=== PATIENT | male | born 1970 ===

== ENCOUNTER 2017-02-20 14:37 | Emergency (ER) | payer OTHER ==
[~2017-02-20] VITALS: Ht 180.3 cm; Wt 111.6 kg
[2017-02-20 15:40] LABS: BASOPHIL % 0.2 % (0-2); PLATELET COUNT 229 x10^3mcL (130-400); RED CELL DISTRIBUTION WIDTH 13.7 % (11.5-14.5)
[2017-02-20 15:51] LABS: microscopic required? YES; urine erythrocyte TRACE (NEGATIVE)
[2017-02-20 16:02] LABS: AMPHETAMINE QUAL UR NONE DETECTED (NEG <=1000)
[2017-02-20 16:05] LABS: CARBON DIOXIDE 26.1 mmol/L (21-32); CHLORIDE SERUM 104 mmol/L (98-107); CREATININE SERUM 0.8 mg/dL (0.7-1.3); GFR1 > 60 mL/min; GLUCOSE SERUM 123 mg/dL (74-106); SODIUM SERUM 141 mmol/L (136-145)
[2017-02-20 16:17] LABS: ALBUMIN 4.2 g/dL (3.4-5.0); ALKALINE PHOSPHATASE 62 U/L (46-116); ALT/SGPT 20 U/L (16-63); AMYLASE 56 U/L (25-115); AST/SGOT 21 U/L (15-37); CHOLESTEROL 170 mg/dL (<200); HDL CHOLESTEROL 45 mg/dL (40-60); LIPASE 126 IU/L (73-393); MAGNESIUM 1.8 mg/dL (1.8-2.4); T4(THYROXINE) 7.8 ug/dL (4.7-13.3)
[2017-02-20 23:56] VITALS: BP 114/69
== END 2017-02-20 23:57 | disposition short-term general hospital (02) ==
LOC: ED 14:37
PROVIDERS: Emergency Medicine
DX: S09.90XA Unspecified injury of head, initial encounter (principal); I10 Essential (primary) hypertension; E78.00 Pure hypercholesterolemia, unspecified; W17.89XA Other fall from one level to another, initial encounter; Y93.89 Activity, other specified; Y99.8 Other external cause status; Y92.89 Other specified places as the place of occurrence of the external cause
CPT/HCPCS: 82962; 83880; 90715; G0480; J1165; J7030; J7050; Q0092